=== PATIENT | male | born 1980 | race American Indian/Alaskan Native ===

== ENCOUNTER 2018-07-10 23:51 | Emergency (ER) | payer SELFPAY ==
[2018-07-11 00:34] VITALS: BP 128/75
[2018-07-11 01:01] LABS: Color,Urine Yellow (Yellow)
[2018-07-11 01:02] LABS: Bilirubin,Urine NEG (Negative); Blood,Urine NEG (Negative); Mucus,Urine FEW /HPF; Protein,Urine <15 mg/dL mg/dL (Negative)
[2018-07-11] MEDS ORDERED: XYLOCAINE 1% MPF 5 mL INFILTRATI ONE (03:22)
[2018-07-11] MEDS ORDERED: ZITHROMAX PO ONE (03:22)
[2018-07-11] MEDS ORDERED: ROCEPHIN IM ONE (03:22)
--- NOTE | 2018-07-11 03:29 | Emergency Department Report ---
HPI - General Chief Complaint: Urogenital-Male Time Seen by Provider: 07/11/18 03:21 - HPI HPI: Room 39 The patient is a 38-year-old male presenting with chief complaint of dysuria. The patient's A for 2 weeks she's had burning with urination. The patient states he noticed a clear penile discharge. The patient states his girlfriend was diagnosed with a UTI but he is not aware of any STDs. Patient denies any other complaints Location: Genitourinary system Duration: 2 Weeks Quality: Burning Severity: Moderate Modifying factors: [see above] Context: [see above] Mode of transportation: Unknown ED Past Medical Hx - Past Medical History Previous Medical History?: No - Surgical History Past Surgical History?: No - Family History Family history: no significant - Social History Smoking Status: Former Smoker (none since 2000) Substance Use Type: None (denies illicit drug use), Alcohol (occasional) - Medications Home Medications: Home Medications Medication Instructions Recorded Confirmed Last Taken Type Ibuprofen [Motrin] 800 mg PO Q8H #30 tablet 08/12/14 Unknown Rx methOCARBAMOL [Robaxin] 500 mg PO BID #30 tab 08/12/14 Unknown Rx traMADol [Ultram 50 MG tab] 50 mg PO Q6HR PRN #20 tablet 08/12/14 Unknown Rx cephALEXin [Keflex] 500 mg PO Q6H #28 capsule 03/01/15 Unknown Rx traMADol [Ultram 50 MG tab] 50 mg PO Q6HR PRN #20 tablet 03/01/15 Unknown Rx Doxycycline [Vibramycin CAP] 100 mg PO Q12HR #14 capsule 07/11/18 Unknown Rx Phenazopyridine [Pyridium] 200 mg PO TID #6 tab 07/11/18 Unknown Rx ED Review of Systems ROS: Stated complaint: BURNING WITH URINATION Other details as noted in HPI Constitutional: denies: fever Eyes: denies: eye pain ENT: denies: throat pain Respiratory: no symptoms reported Cardiovascular: denies: chest pain Endocrine: no symptoms reported Gastrointestinal: denies: abdominal pain Genitourinary: dysuria, discharge Musculoskeletal: denies: back pain Neurological: denies: headache Physical Exam - Physical Exam Vital Signs: Vital Signs 07/11/18 00:25 Temperature 98.2 F Pulse Rate 78 Respiratory 18 Rate Blood Pressure 128/75 O2 Sat by Pulse 100 Oximetry Physical Exam: GENERAL: The patient is well-developed well-nourished male sitting on stretcher not appearing to be in acute distress. [] HEENT: Normocephalic. Atraumatic. Extraocular motions are intact. Patient has moist mucous membranes. NECK: Supple. Trachea midline CHEST/LUNGS: There is no respiratory distress noted. HEART/CARDIOVASCULAR: Regular. There is no tachycardia. There is no gallop rub or murmur. ABDOMEN: There is no abdominal distention SKIN: There is no rash. There is no edema. There is no diaphoresis. NEURO: The patient is awake, alert, and oriented. The patient is cooperative. The patient has normal speech and gait. MUSCULOSKELETAL: There is no evidence of acute injury. ED Course Vital Signs 07/11/18 00:25 Temperature 98.2 F Pulse Rate 78 Respiratory 18 Rate Blood Pressure 128/75 O2 Sat by Pulse 100 Oximetry ED Medical Decision Making - Lab Data Laboratory Tests 07/11/18 Unknown Urine Color Yellow Urine Turbidity Clear Urine pH 6.0 Ur Specific [place] 1.024 Urine Protein <15 mg/dl Urine Glucose (UA) Neg Urine Ketones Neg Urine Blood Neg Urine Nitrite Neg Urine Bilirubin Neg Urine Urobilinogen 2.0 Ur Leukocyte Esterase Tr Urine WBC (Auto) 18.0 H Urine RBC (Auto) 2.0 Urine Mucus Few - Differential Diagnosis urethritis, UTI, gonorrhea chlamydia Critical care attestation.: If time is entered above; I have spent that time in minutes in the direct care of this critically ill patient, excluding procedure time. ED Disposition Clinical Impression: Dysuria, Pyuria, Penile discharge Disposition: DC-01 TO HOME OR SELFCARE Is pt being admited?: No Does the pt Need Aspirin: No Condition: Stable Instructions: Chlamydia Infection (ED), Sexually Transmitted Diseases (ED), Urinary Tract Infection in Men (ED) Additional Instructions: Return to the emergency department immediately should you develop worsening symptoms, fever, inability to tolerate food or liquid or any other concerns. Prescriptions: Doxycycline [Vibramycin CAP] 100 mg PO Q12HR #14 capsule Phenazopyridine [Pyridium] 200 mg PO TID #6 tab Referrals: PRIMARY CARE, [Primary Care Provider] - 3-5 Days [facility] [Outside] - 3-5 Days Time of Disposition: 03:33
== END 2018-07-11 04:15 | disposition home or self-care (01) ==
LOC: ED 23:51
DX: N39.0 Urinary tract infection, site not specified (principal); Z87.891 Personal history of nicotine dependence; Z88.6 Allergy status to analgesic agent
CPT/HCPCS: 81001; 87591; 96372; 99283; J0696